=== PATIENT | female | born 1945 | race Caucasian/White ===

== ENCOUNTER → 2020-01-06 | Outpatient (CLI) | payer MEDICARE, BC ==
[2020-01-06 10:43] LABS: CREATININE SERUM 1.72 MG/DL (0.60-1.30)
--- NOTE | 2020-01-06 14:58 | Diagnostic Imaging Report ---
PROCEDURE: CT neck soft tissue without contrast. TECHNIQUE: Multiple contiguous axial images were obtained through the neck without the use of intravenous contrast. Auto Exposure Controls were utilized during the CT exam to meet ALARA standards for radiation dose reduction. INDICATION: Left parotid mass noted on outside ultrasound. COMPARISON: Comparison is made with outside ultrasound study from 11/25/2019. FINDINGS: Visualized intracranial structures are unremarkable. Posterior nasopharynx and oropharynx are unremarkable. Parapharyngeal fat planes are preserved. Epiglottis and larynx are unremarkable. No thyroid mass is detected. Submandibular glands appear to be symmetric bilaterally. There are hyperdensities identified in both parotid glands. A circumscribed ovoid hyperdensity on the right measures approximately 13 mm x 7 mm. Largest hyperdensity is in the upper portion of the left parotid gland measuring approximately 11 mm in size. Just inferior to this is a second hyperdense nodule measuring 8 mm. There also appear to be vascular structures such as veins within both parotid glands. No cervical lymphadenopathy is seen. No other abnormalities are identified. IMPRESSION: Circumscribed hyperdense nodules within both parotid glands. Further characterization cannot be performed due to absence of intravenous contrast. These could represent solid nodules versus complex cysts. MRI with and without IV contrast may be useful for further characterization. No other significant abnormality is seen. Dictated by: Dictated on workstation # [id number]
== END ==
LOC: LAB FS 09:46
PROVIDERS: ATTEND Otolaryngology Otolaryngology/Facial Plastic Surgery
DX: K11.8 Other diseases of salivary glands (principal)
CPT/HCPCS: 36415; 70490; 82565; 84520

== ENCOUNTER → 2020-03-07 | Outpatient (CLI) | payer MEDICARE, BC ==
[~2020-03-07] VITALS: Ht 160 cm; Wt 102.7 kg
[~2020-03-07] MED LIST: LIDOCAINE 1% INJ 20 ML 20 ML VIAL INJ ONE
--- NOTE | 2020-03-07 12:30 | Diagnostic Imaging Report ---
INDICATION: Parotid cyst. Patient presents for ultrasound-guided aspiration. Patient brought to the procedure and placed on table in the supine position. Ultrasound imaging of the left neck was performed to evaluate appropriate entry site. Left neck was prepped and draped in usual sterile fashion. Small amount of 1% lidocaine was utilized for local anesthesia. Multiple attempts were made to place a 25-gauge needle into the cystic appearing lesion in the left parotid gland. This in a difficult location posteriorly located near the inferior portion of the ear. We could not adequately position the FNA needle into the lesion therefore the procedure was terminated. Patient is fairly non-mobile and difficult to position. IMPRESSION: Attempts were made to place a needle into the circumscribed cystic lesion in the left parotid gland however unsuccessful. After discussion with the patient and Dr. Lua, decided that the patient could return in several months for additional followup to confirm stability of the cystic lesion. Dictated by: Dictated on workstation # [id number]
== END ==
LOC: RAD 10:11
PROVIDERS: ATTEND Otolaryngology Otolaryngology/Facial Plastic Surgery
DX: K11.8 Other diseases of salivary glands (principal)

== ENCOUNTER → 2020-12-06 | Outpatient (CLI) | payer MEDICARE, BC ==
--- NOTE | 2020-12-06 14:40 | Diagnostic Imaging Report ---
Indication: Known cystic nodules within the parotid glands bilaterally. Previous attempt 2020 was made for a left-sided biopsy which was unsuccessful. FINDINGS: There are multiple hypoechoic lesions with some through transmission scattered throughout the parotid. Largest on the left measures 1.7 x 1 x 0.8 cm. Largest on the right measures 1.4 x 0.8 x 1 cm. These are oval and well-circumscribed with smooth margins. There is no hypervascularity. IMPRESSION: Bilateral hypoechoic well-circumscribed oval nodules with posterior acoustical enhancement are demonstrated. 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 It is difficult to compare size of ultrasound with CT but the largest lesion noted in the left lobe does appear to be stable. Dictated by: Dictated on workstation # [id number]
== END ==
LOC: RAD 10:51
PROVIDERS: ATTEND Otolaryngology Otolaryngology/Facial Plastic Surgery
DX: K11.8 Other diseases of salivary glands (principal)
CPT/HCPCS: 76536

== ENCOUNTER → 2021-08-02 | Outpatient (CLI) | payer MEDICARE, BC ==
--- NOTE | 2021-08-02 13:59 | Diagnostic Imaging Report ---
INDICATION: Bilateral parotid cysts, follow-up. Correlation is made with prior ultrasound from 12/06/2020. Circumscribed hypoechoic nodule in the right parotid gland measures 1.0 x 1.1 x 0.8 cm. The largest on the left is approximately 5 mm. These appear smaller when compared with prior exam from November 2020. No new masses detected. IMPRESSION: Decrease in size of circumscribed hypoechoic bilateral parotid nodules when compared with prior exam from 12/06/2020. Dictated by: Dictated on workstation # [id number]
== END ==
LOC: RAD 12:00
PROVIDERS: ATTEND Otolaryngology Otolaryngology/Facial Plastic Surgery
DX: K11.8 Other diseases of salivary glands (principal)
CPT/HCPCS: 76536